=== PATIENT | female | born 1960 | race Caucasian/White ===

== ENCOUNTER 2016-04-13 13:00 | Emergency (ER) | payer MEDICARE, MEDICAID ==
--- NOTE | 2016-04-13 13:21 | ER Document Report ---
ED Medical Screen (RME) - General Stated Complaint: ABDOMINAL PAIN Notes: Diarrhea due to potential dental infection. I greeted and performed a rapid initial assessment of this patient. Comprehensive ED assessment and evaluation of the patient, analysis of test results and completion of the medical decision making process will be conducted by additional ED providers. Physical Exam - Vital signs Vitals: Temp Pulse Resp BP Pulse Ox 97.8 F 77 19 111/72 96 04/13/16 13:17 04/13/16 13:17 04/13/16 13:17 04/13/16 13:17 04/13/16 13:17 Course - Vital Signs Vital signs: Temp Pulse Resp BP Pulse Ox 97.8 F 77 19 111/72 96 04/13/16 13:17 04/13/16 13:17 04/13/16 13:17 04/13/16 13:17 04/13/16 13:17
[2016-04-13 15:28] LABS: ABSOLUTE BASOPHILS # (AUTO) 0.1 10^3/uL (0.0-0.2); ABSOLUTE EOSINOPHILS # (AUTO) 0.1 10^3/uL (0.0-0.6); ABSOLUTE LYMPHOCYTES (AUTO) 2.3 10^3/uL (0.5-4.7); ABSOLUTE MONOCYTES (AUTO) 0.7 10^3/uL (0.1-1.4); ABSOLUTE NEUT (AUTO) 5.9 10^3/uL (1.7-8.2); BASOPHILS % (AUTO) 0.6 % (0-2); EOSINOPHILS % (AUTO) 1.3 % (0-6); HEMATOCRIT 43.6 % (36.0-47.0); HEMOGLOBIN 14.9 g/dL (12.0-15.5); HGB HCT DIFFERENCE 1.1; LYMPHOCYTES % (AUTO) 25.5 % (13-45); MEAN CORPUSCULAR HEMOGLOBIN 30.7 pg (27.0-33.4); MEAN CORPUSCULAR HGB CONC 34.1 g/dL (32.0-36.0); MEAN CORPUSCULAR VOLUME 90 fl (80-97); MONOCYTES % (AUTO) 7.5 % (3-13); RED BLOOD COUNT 4.85 10^6/uL (3.72-5.28); RED CELL DISTRIBUTION WIDTH 12.9 % (11.5-14.0); SEGMENTED NEUTROPHILS % (AUTO) 65.1 % (42-78); WHITE BLOOD COUNT 9.1 10^3/uL (4.0-10.5)
[2016-04-13 15:34] LABS: APPEARANCE,URINE CLEAR; BILIRUBIN,URINE NEGATIVE (NEGATIVE); GLUCOSE, URINE NEGATIVE (NEGATIVE); KETONES,URINE NEGATIVE (NEGATIVE); LEUKOCYTE ESTERASE,URINE NEGATIVE (NEGATIVE); NITRITE,URINE NEGATIVE (NEGATIVE); PROTEIN,URINE NEGATIVE (NEGATIVE); URINE SPECIFIC GRAVITY 1.004; UROBILINOGEN,URINE NEGATIVE mg/dL (<2.0)
[2016-04-13 15:46] LABS: ALANINE AMINOTRANSFERASE 27 U/L (9-52); ALBUMIN 4.8 g/dL (3.5-5.0); ALKALINE PHOSPHATASE 65 U/L (38-126); ANION GAP 12 (5-19); ASPARTATE AMINO TRANSFERASE 20 U/L (14-36); BILIRUBIN,TOTAL 0.6 mg/dL (0.2-1.3); BLOOD UREA NITROGEN 9 mg/dL (7-20); CALCIUM 10.2 mg/dL (8.4-10.2); CARBON DIOXIDE 32 mmol/L (22-30); CHLORIDE 101 mmol/L (98-107); CREATININE RESULT 0.65 mg/dL (0.52-1.25); GLUCOSE 83 mg/dL (75-110); LIPASE 124.1 U/L (23-300); POTASSIUM 3.7 mmol/L (3.6-5.0); SODIUM 144.5 mmol/L (137-145); TOTAL PROTEIN 7.6 g/dL (6.3-8.2)
--- NOTE | 2016-04-13 19:16 | ER Document Report ---
ED GI/ - General Chief Complaint: Abdominal Pain Stated Complaint: ABDOMINAL PAIN Notes: Patient is here to be evaluated for abdominal pains that she says have been going on for about 3 or more weeks. She says that she's actually been sick since she started having some dental surgery in December, this past fall. She had a couple of these procedures and she attributes her abdominal problems to those procedures and the medications that she was given during those procedures. She was treated with antibiotics as well as tapered steroids. She is currently complaining of abdominal pain for the past 3 weeks, located primarily in the center of the abdomen. Her last course of antibiotics was around . Patient does not have any vomiting or diarrhea, but is nauseated. She points to the center of her abdomen is where her pain is located. She says that she's had a significant weight loss. Saw a primary care physician who provided her with Gaviscon, probiotic, and Bentyl, but only at 10 mg 3 times a day. She says she just got these medications and doesn't know if they're going to help. TRAVEL OUTSIDE OF THE [place] IN LAST 30 DAYS: No - Related Data Allergies/Adverse Reactions: No Known Allergies Allergy (Unverified 04/13/16 13:23) Past Medical History - Social History Smoking Status: Current Every Day Smoker Chew tobacco use (# tins/day): No Frequency of alcohol use: None Drug Abuse: None Family History: Reviewed & Not Pertinent Patient has suicidal ideation: No Patient has homicidal ideation: No - Past Medical History Cardiac Medical History: Denies: Hx Coronary Artery Disease Pulmonary Medical History: Reports: Hx COPD Review of Systems - Review of Systems Notes: REVIEW OF SYSTEMS: CONSTITUTIONAL : Denies fever. EENT: Denies eye, ear, nose or mouth or throat pain or other symptoms. CARDIOVASCULAR: Denies chest pain. RESPIRATORY: Denies cough, chest congestion, or shortness of breath. GASTROINTESTINAL: See history of present illness. GENITOURINARY: Denies difficulty or painful urinating, urinary frequency, blood in urine. MUSCULOSKELETAL: Denies back or neck pain. Denies joint pain or swelling. SKIN: Denies rash or skin lesions. NEUROLOGICAL: Denies LOC or altered mental status. Denies headache. Denies sensory loss or motor deficits. ALL OTHER SYSTEMS REVIEWED AND NEGATIVE. Physical Exam - Vital signs Vitals: Temp Pulse Resp BP Pulse Ox 97.8 F 77 19 111/72 96 04/13/16 13:17 04/13/16 13:17 04/13/16 13:17 04/13/16 13:17 04/13/16 13:17 Interpretation: Normal - Notes Notes: PHYSICAL EXAMINATION: GENERAL: Well-appearing, in no acute distress. Appears to be someone who has smoked excessively for her entire life. Looks much older than her chronologic age. HEAD: Atraumatic, normocephalic. NECK: Normal range of motion, supple. LUNGS: Breath sounds clear and equal bilaterally. HEART: Regular rate and rhythm without murmurs. ABDOMEN: Soft, tender throughout, but no guarding or rebound present. No masses present. No bruits heard. BACK: No tenderness throughout entire back. EXTREMITIES: Normal range of motion without pain. NEUROLOGICAL: Normal speech, normal gait. Normal sensory, motor, and reflex exams. Awake, alert, and oriented x3. Cranial nerves normal. PSYCH: Normal mood, normal affect. SKIN: Warm, dry, no rashes. Course - Re-evaluation Re-evalutation: 04/13/16 21:27 Patient advised that she can continue to take the Gaviscon and probiotic as well as the Bentyl, although she should increase the dose of it to a maximum per day of 40 mg 4 times a day. I am giving her a prescription for some Ativan to take as well. - Vital Signs Vital signs: Temp Pulse Resp BP Pulse Ox 98.6 F 73 16 125/73 98 04/13/16 19:25 04/13/16 19:25 04/13/16 19:25 04/13/16 19:25 04/13/16 19:25 - Laboratory Result Diagrams: 04/13/16 15:00 04/13/16 15:00 Laboratory results interpreted by me: 04/13/16 15:00 Carbon Dioxide 32 H - Diagnostic Test Radiology reviewed: Image reviewed, Reports reviewed - Patient's chest x-ray shows COPD. CT scan of the abdomen and pelvis with oral and IV contrast was negative. Discharge - Discharge Clinical Impression: Anxiety Abdominal pain Qualifiers: Abdominal location: periumbilical Qualified Code(s): R10.33 - Periumbilical pain COPD (chronic obstructive pulmonary disease) Qualifiers: COPD type: unspecified COPD Qualified Code(s): J44.9 - Chronic obstructive pulmonary disease, unspecified Condition: Stable Disposition: HOME, SELF-CARE Additional Instructions: ABDOMINAL PAIN: There are many causes of abdominal pain. Pain can mean a serious problem requiring surgery (such as appendicitis). It can also be an innocent problem that goes away on its own (such as a viral infection). Often, time must pass to determine the cause of pain. The physician does not feel that hospitalization is necessary, at present. Things may change within the next 24 hours. Call the doctor or come back for re- examination if any problems occur, such as: (1) Pain that becomes more severe, steady, or becomes concentrated in one specific area. Also, pain that is more severe with movement or coughing. (2) Vomiting that persists or becomes more frequent. (3) Blood in the vomitus, urine, or bowel movements. Blood in the stool may have a tarry or black appearance. (4) Shaking chills or fever greater than 100 degrees F. (5) The abdomen becomes more distended or swollen. (6) Bowel movements cease. (7) Failure to improve as expected. NORMAL EXAM AND WORKUP: At this time, your examination and workup show no significant abnormality. No significant abnormal physical findings are noted. All laboratory, EKG, and imaging (x-ray, CT scans, ultrasound) studies that were ordered show no significant abnormality. Although your examination and all studies that were ordered showed no significant abnormal finding, there are no examinations and no studies that are 100% accurate. There is always the possibility that some abnormality could exist and not be detected with physical examination or within the limits and capabilities of laboratory and other studies. You should return or follow up as you were instructed on your visit today for further evaluation if your symptoms do not resolve. Anxiety The physician feels that some of your health problems are being caused by anxiety. Anxiety affects your health in many ways. Anxiety alone can cause palpitations, sweats, chest pains, abdominal pains, shortness of breath, and headaches. It contributes to ulcer disease, high blood pressure, irritable bowel syndrome, and has been shown to cause flare-ups of many other diseases. Anxiety is not a simple disorder to treat. If the anxiety is due to recent life stresses, you may simply need time to "work through" the changes. If the anxiety is due to an underlying unhappiness with yourself or due to psychiatric disturbance, professional help will be needed. Your physician can refer you for further help if needed. Anti-anxiety medication is occasionally given if the stress is acute or if you are having trouble sleeping. Chronic or frequent use of these medications is not a good idea because the body becomes reliant on it, preventing you from dealing with life's normal stresses. Benzodiazepines You have been given a benzodiazepine medication. Examples of this type of medicine include Valium, Xanax, Librium, Ativan, and Halcion. Benzodiazepines have many uses. Medications of this type are used for insomnia, anxiety, muscle spasms, seizures, and drug and alcohol withdrawal. You may become very drowsy when you first take the medication. You should not drive or operate machinery while under its effects. Do not combine the medication with alcohol, or with any other medication without talking to your doctor. Do not take if without specific instruction from your peeled potato inspector. Some benzodiazepines may have harmful interactions with oral antifungal medicines such as ketoconazole, itraconazole, and nefazodone. If you are taking an antifungal medicine, discuss this with your doctor before taking benzodiazepines. FOLLOW-UP CARE: If you have been referred to a physician for follow-up care, call the physician s office for an appointment as you were instructed or within the next two days. If you experience worsening or a significant change in your symptoms, notify the physician immediately or return to the Emergency Department at any time for re-evaluation. Chronic Obstructive Lung Disease You have chronic obstructive lung disease (COPD). The symptoms come from emphysema (damage to small airways, with trapping of air in large sacks in the lung) and chronic bronchitis (repeated infection and damage to larger airways). The cause is almost always cigarette smoking, although dust exposure, asthma, and infections contribute. You should avoid fumes, dust, and smoke (especially tobacco smoke). Your condition will flare from time to time. There is no cure, but the symptoms can be treated. Bronchodilators (asthma medicine) are often helpful. Antibiotics help when infection is present. When shortness of breath is severe, we may prescribe cortisone medication. If medicine doesn't help enough, we can arrange for you to have an oxygen tank at home. Notify your doctor at once if sputum becomes thick, foul, or bloody, if you develop a fever or chest pain, or if your shortness of breath worsens. You have severe COPD. You have destroyed a significant percentage of your lung tissue from smoking over the years. It is imperative that you stop smoking! Prescriptions: Lorazepam [Ativan 1 mg Tablet] 1 mg PO Q4HP PRN #30 tab PRN Reason: Forms: Smoking Cessation Education Referrals: YONATAN WOLFF, JUSTIN-C [Primary Care Provider] - Follow up as needed
[2016-04-13 19:30] VITALS: BP 125/73
== END 2016-04-13 19:30 | disposition home or self-care (01) ==
LOC: ER 13:00
DX: J44.9 Chronic obstructive pulmonary disease, unspecified (principal); R10.33 Periumbilical pain; R11.0 Nausea; F17.200 Nicotine dependence, unspecified, uncomplicated
CPT/HCPCS: 36415; 71020; 74177; 80053; 81001; 83690; 85025; 99284

== ENCOUNTER → 2018-06-04 | Outpatient (CLI) | payer MEDICARE, MEDICAID ==
--- NOTE | 2018-06-04 08:32 | RADIOLOGY REPORT (SQ) ---
EXAM DESCRIPTION: CT ABD/PELVIS WITH IV ONLY COMPLETED DATE/TIME: 06/04/2018 8:25 am REASON FOR STUDY: PELVIC PAIN, BLOATING R10.2 PELVIC AND PERINEAL PAIN COMPARISON: 04/13/2016 TECHNIQUE: CT scan of the abdomen and pelvis performed using helical scanning technique with dynamic intravenous contrast injection. No oral contrast. Images reviewed with lung, soft tissue, and bone windows. Reconstructed coronal and sagittal MPR images reviewed. Delayed images for evaluation of the urinary system also acquired. All images stored on PACS. All CT scanners at this facility use dose modulation, iterative reconstruction, and/or weight based d osing when appropriate to reduce radiation dose to as low as reasonably achievable (ALARA). [facility]: Dose Right [facility]: CareDose [facility]: Dose Right [facility]: Teradose 4D [facility]: [employer] CONTRAST TYPE AND DOSE: contrast/concentration: Isovue 350.00 mg/ml; Total Contrast Delivered: 51.0 ml; Total Saline Delivered: 65.0 ml RENAL FUNCTION: Creatinine 0.7 RADIATION DOSE: CT Rad equipment meets quality standard of care and radiation dose reduction techniq ues were employed. CTDIvol: 2.0 - 2.8 mGy. DLP: 223 mGy-cm.. LIMITATIONS: None. FINDINGS: LOWER CHEST: No significant findings. No nodules or infiltrates. LIVER: Normal size. No masses. No dilated ducts. SPLEEN: Normal size. No focal lesions. PANCREAS: No masses. No significant calcifications. No adjacent inflammation or peripancreatic fluid collections. Pancreatic duct not dilated. GALLBLADDER: No identified stones by CT criteria. No inflammatory changes to suggest cholecystitis. ADRENAL GLANDS: No significant masses or asymmetry. RIGHT KIDNEY AND URETER: No solid masses. No significant calcifications. No hydronephrosis or hyd roureter. LEFT KIDNEY AND URETER: No solid masses. No significant calcifications. No hydronephrosis or hydr oureter. AORTA AND VESSELS: No aneurysm. No dissection. Renal arteries, SMA, celiac without stenosis. RETROPERITONEUM: No retroperitoneal adenopathy, hemorrhage or masses. BOWEL AND PERITONEAL CAVITY: No masses or inflammatory changes. No free fluid or peritoneal masses. APPENDIX: Not visualized. PELVIS: No mass. No free fluid. Normal bladder. ABDOMINAL WALL: No masses. No hernias. BONES: No significant or acute findings. OTHER: No other significant finding. IMPRESSION: NO SIGNIFICANT OR ACUTE FINDING IN THE ABDOMEN OR PELVIS ON CT SCAN WITH IV CONTRAST. TECHNICAL DOCUMENTATION: JOB ID: [id number] Quality ID # [id number]: Final reports with documentation of one or more dose reduction techniques (e.g., Au tomated exposure control, adjustment of the mA and/or kV according to patient size, use of iterative reconstruction technique) 2010 [employer]- All Rights Reserved Reading location - IP/workstation name: [email or web address]
== END ==
LOC: RAD 07:50
PROVIDERS: ATTEND Specialist
DX: R10.2 Pelvic and perineal pain (principal)
CPT/HCPCS: 74177; 82565

== ENCOUNTER 2018-06-18 06:09 | Day surgery (SDC) | payer MEDICARE, MEDICAID ==
[2018-06-16 13:05] LABS: HEMATOCRIT 45.3 % (36.0-47.0); HEMOGLOBIN 15.9 g/dL (12.0-15.5); MEAN CORPUSCULAR HEMOGLOBIN 31.1 pg (27.0-33.4); MEAN CORPUSCULAR VOLUME 89 fl (80-97); PLATELET COUNT 186 10^3/uL (150-450); RED CELL DISTRIBUTION WIDTH 12.9 % (11.5-14.0); WHITE BLOOD COUNT 8.2 10^3/uL (4.0-10.5)
[2018-06-16 13:09] LABS: APPEARANCE,URINE SLIGHTLY-CLOUDY; BILIRUBIN,URINE NEGATIVE (NEGATIVE); COLOR,URINE YELLOW; GLUCOSE, URINE NEGATIVE (NEGATIVE); KETONES,URINE NEGATIVE (NEGATIVE); LEUKOCYTE ESTERASE,URINE NEGATIVE (NEGATIVE); NITRITE,URINE NEGATIVE (NEGATIVE); PROTEIN,URINE NEGATIVE (NEGATIVE); URINE SPECIFIC GRAVITY 1.008; UROBILINOGEN,URINE NEGATIVE mg/dL (<2.0)
[2018-06-16 13:45] LABS: ANION GAP 9 (5-19); BLOOD UREA NITROGEN 16 mg/dL (7-20); CALCIUM 10.7 mg/dL (8.4-10.2); CARBON DIOXIDE 28 mmol/L (22-30); CHLORIDE 102 mmol/L (98-107); GLUCOSE 96 mg/dL (75-110); SODIUM 139.3 mmol/L (137-145)
--- NOTE | 2018-06-16 13:59 | RADIOLOGY REPORT (SQ) ---
EXAM DESCRIPTION: CHEST PA/LATERAL COMPLETED DATE/TIME: 06/16/2018 12:05 pm REASON FOR STUDY: PRE-OP COMPARISON: 04/13/2016 EXAM PARAMETERS: NUMBER OF VIEWS: two views TECHNIQUE: Digital Frontal and Lateral radiographic views of the chest acquired. RADIATION DOSE: NA LIMITATIONS: Rotation on the lateral projection. FINDINGS: LUNGS AND PLEURA: No opacities, masses or pneumothorax. No pleural effusion. Mild hyperin flation. MEDIASTINUM AND HILAR STRUCTURES: No masses or contour abnormalities. HEART AND VASCULAR STRUCTURES: Heart normal size. No evidence for failure. BONES: No acute findings. HARDWARE: None in the chest. OTHER: No other significant finding. IMPRESSION: No evidence of acute cardiopulmonary process. TECHNICAL DOCUMENTATION: JOB ID: [id number] [employer]- All Rights Reserved Reading location - IP/workstation name: [email or web address]
--- NOTE | 2018-06-16 18:43 | EKG REPORT ---
SEVERITY:- NORMAL ECG - SINUS RHYTHM : Confirmed by: Jann Pena MD 16-Jun-2018 18:43:00
[~2018-06-18 06:09] MED LIST: CEFAZOLIN 1 GM/D5W RTU 1 GM/50 ML RTUPB IV PRN; LACTATED RINGERS 1000 ML IV PRN; LIDOCAINE 0.5% INJ-PF (5 MG/ML) 50 ML SDV SUBCUT PRN
[2018-06-18] MEDS ORDERED: ALBUTEROL SULFATE 0.083% NEB 2.5 MG/3 ML AMPUL NEB ONE (06:45)
[2018-06-18] MEDS ORDERED: CEFAZOLIN 1 GM/D5W RTU 1 GM/50 ML RTUPB IV ONE (06:54)
[2018-06-18] MEDS ORDERED: MIDAZOLAM 2 MG/2 ML INJ ONE (07:02)
[2018-06-18] MEDS ORDERED: FENTANYL CITRATE INJ/PF 100 MCG/2 ML AMPUL ONE (07:02)
[2018-06-18] MEDS ORDERED: ONDANSETRON HCL INJ/PF 4 MG/2 ML SDV ONE (07:02)
[2018-06-18] MEDS ORDERED: PROPOFOL INJ 200 MG/20 ML VIAL IV ONE (07:03)
[2018-06-18] MEDS ORDERED: METOCLOPRAMIDE HCL INJ/PF 10 MG/2 ML SDV ONE (07:24)
[2018-06-18] MEDS ORDERED: FAMOTIDINE INJ/PF 20 MG/2 ML SDV IV ONE (07:25)
[2018-06-18] MEDS ORDERED: CITRIC ACID/SODIUM CITRATE ORAL SOLN 15 ML UDCUP ONE (07:25)
[2018-06-18] MEDS ORDERED: MEPERIDINE HCL/PF INJ 25 MG/1 ML DISP.SYRIN IV PRN (07:40)
[2018-06-18] MEDS ORDERED: PROMETHAZINE HCL INJ 25 MG/1 ML VIAL IV PRN (07:40)
[2018-06-18] MEDS ORDERED: DIPHENHYDRAMINE HCL 50 MG/ML VIAL IV PRN (07:40)
[2018-06-18] MEDS ORDERED: FENTANYL CITRATE INJ/PF 100 MCG/2 ML AMPUL IV PRN ×3 (07:40)
[2018-06-18] MEDS ORDERED: LIDOCAINE 1% INJ-PF (10 MG/ML) 30 ML SDV ONE (08:05)
[2018-06-18] MEDS ORDERED: ACETAMINOPHEN 1,000 MG/100 ML RTUPB IV ONE (08:39)
[2018-06-18] MEDS ORDERED: KETOROLAC TROMETHAMINE 60 MG/2 ML SDV ONE (08:39)
--- NOTE | 2018-06-18 09:19 | OPERATIVE REPORT E ---
Operative Report NAME: AMY GURROLA : 1960 AGE: 58Y DATE OF SURGERY: 06/18/2018 ROOM: PREOPERATIVE DIAGNOSIS: Chronic pelvic pain, question endometrial lesion. Outpatient Pap biopsies have been nondefinitive. The patient has been evaluated for cramping, abdominal pain without bleeding. She had a vaginal ultrasound that demonstrated question of a [address] scan demonstrated ill-defined isthmic lesion in the cervical area. The patient describes cramping and abdominal distention. The CT scan was noncontributory in that matter. She was brought in for hysteroscopy, more complete curettage, possible Myosure for polypectomy. The usual risks of bleeding, infection, anesthesia, and damage to organs and tissues have been discussed and the patient understood. PROCEDURE: Hysteroscopy D and C. SURGEON: BHUPINDER WOODARD M.D. ESTIMATED BLOOD LOSS: Less than 5 mL. FINDINGS: An endometrial cavity. Right tubal ostia was identified. Left tubal ostia was not noted. There appeared to be more of a unilateral uterus. Atrophic endometrial cavity was encountered. No endometrial polyp was appreciated. Curettage of the endometrium as well as endocervical areas were noted. Endocervical area specifically showed no lesions in the canal and a normal-appearing atrophic cervix was appreciated. EUA demonstrated no pelvic masses appreciated. Rectal exam demonstrated a normal rectal exam and no masses. DESCRIPTION OF PROCEDURE: The patient was taken to the operating room and placed in the modified lithotomy position. After adequate anesthesia ascertained, prepped and draped in the usual manner for a hysteroscopy. Bladder was left undrained. After good anesthesia was ascertained, surgical timeout was performed, cervix dilated to admit an operative hysteroscope. The above noted findings were appreciated. Endometrial biopsies ensued. Instruments were removed and the patient awakened and taken to recovery room in stable condition. DICTATING PHYSICIAN: BHUPINDER WOODARD M.D. [id number] PHY#: [id number] ID: [id number] JOB#: [id number] ACCT: [id number] cc:BHUPINDER WOODARD M.D. >
[2018-06-18] MEDS ORDERED: OXYCODONE-ACETAMINOPHEN 5-325 MG TABLET PO PRN (09:30)
[2018-06-18] MEDS ORDERED: MORPHINE INJ 4 MG DOSE (EDIT ROUTE) INJ PRN (09:30)
[2018-06-18] MEDS ORDERED: PROMETHAZINE HCL INJ 25 MG/1 ML VIAL IM PRN (09:30)
[2018-06-18] MEDS ORDERED: IBUPROFEN 800 MG TABLET ONE (10:04)
[2018-06-18 11:12] VITALS: BP 121/62
[2018-06-18] MEDS ORDERED: IBUPROFEN 800 MG TABLET PO SCH (14:00)
[2018-06-18] MEDS ORDERED: SUCCINYLCHOLINE CHLORIDE INJ 200 MG/10 ML VIAL ONE (21:16)
== END 2018-06-18 11:00 | disposition home or self-care (01) ==
LOC: OROUT 06:09
PROVIDERS: ATTEND Specialist
DX: G89.29 Other chronic pain (principal); R10.2 Pelvic and perineal pain; F17.210 Nicotine dependence, cigarettes, uncomplicated; D66 Hereditary factor VIII deficiency
CPT/HCPCS: 58558; 93005; 86900; 86901; 36415; 86850; 85027; 80048; 81001; 88305 ×2; 71046; 93010; J2250; J0690; A9270 ×2; J1885; J3010; J3490 ×2; J2765; J0330; J2405; J2704; S0028; J0131; 952

== ENCOUNTER 2019-01-10 09:15 | Emergency (ER) | payer MEDICARE, MEDICAID ==
--- NOTE | 2019-01-10 12:46 | RADIOLOGY REPORT (SQ) ---
EXAM DESCRIPTION: CHEST 2 VIEWS COMPLETED DATE/TIME: 01/10/2019 12:32 pm REASON FOR STUDY: COPD, altered mental status COMPARISON: PA and lateral views of the chest from 06/16/2018. EXAM PARAMETERS: NUMBER OF VIEWS: two views TECHNIQUE: Digital Frontal and Lateral radiographic views of the chest acquired. RADIATION DOSE: NA LIMITATIONS: none FINDINGS: LUNGS AND PLEURA: No consolidation, pleural effusion or pneumothorax. MEDIASTINUM AND HILAR STRUCTURES: No mediastinal or hilar contour abnormality. HEART AND VASCULAR STRUCTURES: The cardiac silhouette and pulmonary vasculature are within normal james its. BONES: No acute findings. HARDWARE: None. OTHER: No other finding. IMPRESSION: No acute cardiopulmonary process. TECHNICAL DOCUMENTATION: JOB ID: [id number] [employer]- All Rights Reserved Reading location - IP/workstation name: [email or web address]
--- NOTE | 2019-01-10 12:49 | RADIOLOGY REPORT (SQ) ---
EXAM DESCRIPTION: CT HEAD WITHOUT COMPLETED DATE/TIME: 01/10/2019 12:29 pm REASON FOR STUDY: Shaking, confusion COMPARISON: None. TECHNIQUE: Axial images acquired through the brain without intravenous contrast. Images reviewed wi th bone, brain and subdural windows. Additional sagittal and coronal reconstructions were generated. Images stored on PACS. All CT scanners at this facility use dose modulation, iterative reconstruction, and/or weight based d osing when appropriate to reduce radiation dose to as low as reasonably achievable (ALARA). [facility]: Dose Right [facility]: CareDose [facility]: Dose Right [facility]: Teradose 4D [facility]: [employer] LIMITATIONS: None. FINDINGS: There is no acute intracranial hemorrhage, vascular territorial infarct, extra-axial fluid collection, mass effect, or midline shift. There is no effacement of the cerebral sulci or basal omer barachnoid cisterns. The rodrigues-white matter differentiation is preserved. The caliber of the ventric les is concordant with the degree of sulcation. The orbits and globes are intact. The paranasal sinuses and the mastoid air cells are clear. There is no fracture of the calvarium. IMPRESSION: No acute intracranial abnormality. EVIDENCE OF ACUTE STROKE: NO. COMMENT: Quality ID # [id number]: Final reports with documentation of one or more dose reduction techniques (e.g., Automated exposure control, adjustment of the mA and/or kV according to patient size, use of iterative reconstruction technique) TECHNICAL DOCUMENTATION: JOB ID: [id number] [employer]- All Rights Reserved Reading location - IP/workstation name: [email or web address]
[2019-01-10 13:16] LABS: ABSOLUTE LYMPHOCYTES (AUTO) 1.4 10^3/uL (0.5-4.7); ABSOLUTE MONOCYTES (AUTO) 0.4 10^3/uL (0.1-1.4); ABSOLUTE NEUT (AUTO) 5.1 10^3/uL (1.7-8.2); BASOPHILS % (AUTO) 0.6 % (0-2); EOSINOPHILS % (AUTO) 0.5 % (0-6); HEMATOCRIT 45.2 % (36.0-47.0); HEMOGLOBIN 15.3 g/dL (12.0-15.5); LYMPHOCYTES % (AUTO) 19.7 % (13-45); MEAN CORPUSCULAR HEMOGLOBIN 30.5 pg (27.0-33.4); MEAN CORPUSCULAR HGB CONC 33.8 g/dL (32.0-36.0); MEAN CORPUSCULAR VOLUME 90 fl (80-97); MONOCYTES % (AUTO) 6.1 % (3-13); PLATELET COUNT 177 10^3/uL (150-450); RED BLOOD COUNT 5.01 10^6/uL (3.72-5.28); RED CELL DISTRIBUTION WIDTH 12.9 % (11.5-14.0); SEGMENTED NEUTROPHILS % (AUTO) 73.1 % (42-78); TOTAL CELLS COUNTED % (AUTO) 100 %; WHITE BLOOD COUNT 6.9 10^3/uL (4.0-10.5)
[2019-01-10 13:43] LABS: ALBUMIN 4.5 g/dL (3.5-5.0); ALKALINE PHOSPHATASE 56 U/L (38-126); ANION GAP 8 (5-19); ASPARTATE AMINO TRANSFERASE 27 U/L (14-36); BILIRUBIN,DIRECT 0.1 mg/dL (0.0-0.4); BILIRUBIN,TOTAL 0.6 mg/dL (0.2-1.3); BLOOD UREA NITROGEN 16 mg/dL (7-20); CALCIUM 10.3 mg/dL (8.4-10.2); CARBON DIOXIDE 29 mmol/L (22-30); CHLORIDE 103 mmol/L (98-107); GLUCOSE 89 mg/dL (75-110); POTASSIUM 3.6 mmol/L (3.6-5.0); TOTAL PROTEIN 7.3 g/dL (6.3-8.2)
[2019-01-10 14:43] LABS: FREE T4 (FREE THYROXINE) 1.07 ng/dL (0.78-2.19); THYROID STIMULATING HORMONE 1.27 uIU/mL (0.47-4.68)
[2019-01-10 15:12] LABS: AMORPHOUS SEDIMENT,URINE TRACE /HPF; APPEARANCE,URINE CLOUDY; BILIRUBIN,URINE NEGATIVE (NEGATIVE); GLUCOSE, URINE NEGATIVE (NEGATIVE); KETONES,URINE 20 mg/dL (NEGATIVE); LEUKOCYTE ESTERASE,URINE TRACE (NEGATIVE); NITRITE,URINE NEGATIVE (NEGATIVE); PROTEIN,URINE NEGATIVE (NEGATIVE); URINE SPECIFIC GRAVITY 1.013; UROBILINOGEN,URINE NEGATIVE mg/dL (<2.0)
[2019-01-10 15:14] LABS: COLOR,URINE DARK YELLOW
--- NOTE | 2019-01-10 15:41 | ER Document Report ---
ED General - General Chief Complaint: Medical Clearance Stated Complaint: TOXICITY Time Seen by Provider: 01/10/19 11:43 Primary Care Provider: SHANA GARCIA PA-C [Primary Care Provider] - Follow up as needed Notes: Patient is here with her family who are concerned that she may be having side effects from previously ingested medications, several weeks ago. Patient says that she is having episodes of shaking and at times, confused and disoriented. These episodes have been going on for 2 to 3 months, and then she had an appointment with her GI doctor who did a lower endoscopy several months ago and told her she had irritable bowel syndrome. She was put on Elavil and began having the symptoms described, shaking, confusion, etc. so she stopped taking that medication about 3 weeks ago. She saw her primary care doctor this past Thursday who changed her to Lexapro which she took for 3 days and stopped jeff ing it because it was causing her to have panic attacks. Patient currently takes Xanax, supposedly at nighttime, to help with her panic attacks. She has been taking them during the day as well. Patient is here with her daughter who is a pharmacy salesperson who has concerns about toxic side effects of this patient's medications that she is been prescribed. She additionally reports that her family has a high acid content in their saliva which caused damage to the teeth and to work done on her teeth. TRAVEL OUTSIDE OF THE [place] IN LAST 30 DAYS: No - Related Data Allergies/Adverse Reactions: OPIOIDS Adverse Reaction (Intermediate, Uncoded 06/18/18 07:00) VOMITING Past Medical History - Social History Smoking Status: Current Every Day Smoker - 1/2 pack/day Family History: Reviewed & Not Pertinent Patient has suicidal ideation: No Patient has homicidal ideation: No Pulmonary Medical History: Reports: Hx COPD Neurological Medical History: Reports: Hx Seizures - LAST ONE 10YRS AGO Musculoskeletal Medical History: Denies Hx Arthritis - Immunizations Hx Diphtheria, Pertussis, Tetanus Vaccination: Yes Review of Systems - Review of Systems Notes: REVIEW OF SYSTEMS: CONSTITUTIONAL : Denies fever. EENT: Denies eye, ear, nose or mouth or throat pain or other symptoms. CARDIOVASCULAR: Denies chest pain. RESPIRATORY: Denies cough, chest congestion, or shortness of breath. Has been told that she has some COPD. GASTROINTESTINAL: Denies abdominal pain or nausea, vomiting, or diarrhea. Has been told that she has IBS. GENITOURINARY: Denies difficulty or painful urinating, urinary frequency, blood in urine. MUSCULOSKELETAL: Denies back or neck pain. Denies joint pain or swelling. SKIN: Denies rash or skin lesions. NEUROLOGICAL: Denies LOC or altered mental status. Denies headache. Denies sensory loss or motor deficits. Psychiatric: See HPI. Patient admits she is been feeling under a lot of stress lately. ALL OTHER SYSTEMS REVIEWED AND NEGATIVE. Physical Exam - Vital signs Vitals: Temp Pulse Resp BP Pulse Ox 97.7 F 80 16 128/82 H 98 01/10/19 09:21 01/10/19 09:21 01/10/19 09:21 01/10/19 09:21 01/10/19 09:21 Interpretation: Normal - General General appearance: Appears well, Alert In distress: None - HEENT Head: Normocephalic Eyes: Normal Extraocular movements intact: Yes Pupils: PERRL - Respiratory Respiratory status: No respiratory distress Breath sounds: Normal. No: Rales, Wheezing Chest palpation: Normal - Cardiovascular Rhythm: Regular Heart sounds: Normal auscultation Normal capillary refill: Yes - Abdominal Bowel sounds: Normal Tenderness: Nontender - Extremities General upper extremity: Normal inspection, Nontender General lower extremity: Normal inspection, Nontender - Neurological Neuro grossly intact: Yes Cognition: Normal Orientation: AAOx4 Mary Coma Scale Verbal: Oriented Speech: Normal - Psychological Associated symptoms: Anxious, Depressed - in my opinion. No: Confused, Paranoid - Skin Skin Temperature: Warm Skin Color: Normal Skin irregularity: negative: Rash Irregularity with: negative: Swelling, Tenderness Course - Re-evaluation Re-evalutation: 01/10/19 19:07 Patient's entire work-up is almost completely normal. Went over everything with her and her family. Advised her to follow-up with her primary care provider to provide her with medications for treating likely anxiety. - Vital Signs Vital signs: Temp Pulse Resp BP Pulse Ox 97.7 F 80 15 130/74 H 97 01/10/19 09:21 01/10/19 09:21 01/10/19 15:01 01/10/19 15:00 01/10/19 15:01 - Laboratory Result Diagrams: 01/10/19 12:55 01/10/19 12:55 Laboratory results interpreted by me: 01/10/19 01/10/19 12:55 14:27 Calcium 10.3 H Urine Ketones 20 H Ur Leukocyte Esterase TRACE H - Diagnostic Test Radiology reviewed: Image reviewed, Reports reviewed - CT scan of the brain was normal. Radiology results interpreted by me: 01/10/19 19:11 Chest x-ray is normal. - EKG Interpretation by Me EKG shows normal: Sinus rhythm Rate: Normal Rhythm: NSR Additional EKG results interpreted by me: 01/10/19 19:12 Patient has no elevation of any of the ST segments. There are no nonspecific changes either. Very normal EKG. Discharge - Discharge Clinical Impression: COPD (chronic obstructive pulmonary disease), Anxiety Condition: Stable Disposition: HOME, SELF-CARE Additional Instructions: Anxiety The physician feels that some of your health problems are being caused by anxiety. Anxiety affects your health in many ways. Anxiety alone can cause palpitations, sweats, chest pains, abdominal pains, shortness of breath, and he adaches. It contributes to ulcer disease, high blood pressure, irritable bowel syndrome, and has been shown to cause flare-ups of many other diseases. Anxiety is not a simple disorder to treat. If the anxiety is due to recent life stresses, you may simply need time to "work through" the changes. If the anxiety is due to an underlying unhappiness with yourself or due to psychiatric disturbance, professional help will be needed. Your physician can refer you for further help if needed. Anti-anxiety medication is occasionally given if the stress is acute or if you are having trouble sleeping. Chronic or frequent use of these medications is not a good idea because the body becomes reliant on it, preventing you from dealing with life's normal stresses. Chronic Obstructive Lung Disease You have chronic obstructive lung disease (COPD). The symptoms come from emphysema (damage to small airways, with trapping of air in large sacks in the lung) and chronic bronchitis (repeated infection and damage to larger airways). The cause is almost always cigarette smoking, although dust exposure, asthma, and infections contribute. You should avoid fumes, dust, and smoke (especially tobacco smoke). Your condition will flare from time to time. There is no cure, but the symptoms can be treated. Bronchodilators (asthma medicine) are often helpful. Antibiotics help when infection is present. When shortness of breath is severe, we may prescribe cortisone medication. If medicine doesn't help enough, we can arrange for you to have an oxygen tank at home. Notify your doctor at once if sputum becomes thick, foul, or bloody, if you develop a fever or chest pain, or if your shortness of breath worsens. Stop Smoking You should stop smoking. The tar and chemicals in cigarette smoke are harmful. Smoking has been shown to cause: Emphysema and chronic bronchitis Lung cancer Cancer of the mouth, larynx, stomach, and pancreas Heart disease and stroke Stillbirths and miscarriage Premature aging In addition, smoking increases the chances of respiratory infections and ear infections in children of smokers, and increases the risk of cancer in persons exposed to second-hand smoke. Classes are available to help you stop smoking. If you are serious about wanting to quit, we can help arrange this therapy for you, or you can contact the local lung or cancer association. Otherwise, NORMAL EXAM AND WORKUP: At this time, your examination and workup show no significant abnormality. No significant abnormal physical findings were noted. All laboratory, EKG, and imaging (x-ray, CT scans, ultrasound) studies that were ordered show no significant abnormality. Although your examination and all studies that were ordered showed no significant abnormal finding, there are no examinations and no studies that are 100% accurate. There is always the possibility that some abnormality could exist and not be detected with physical examination or within the limits and capabilities of laboratory and other studies. You should return or follow up as you were instructed on your visit today for further evaluation if your symptoms do not resolve. FOLLOW-UP CARE: If you have been referred to a physician for follow-up care, call the physici ans office for an appointment as you were instructed or within the next two days. If you experience worsening or a significant change in your symptoms, notify the physician immediately or return to the Emergency Department at any time for re-evaluation. Referrals: SHANA GARCIA PA-C [Primary Care Provider] - Follow up as needed
[2019-01-10 16:00] VITALS: BP 130/74
--- NOTE | 2019-01-10 19:43 | EKG REPORT ---
SEVERITY:- ABNORMAL ECG - SINUS RHYTHM PROBABLE LEFT VENTRICULAR HYPERTROPHY : Confirmed by: Jann Pena MD 10-Jan-2019 19:43:08
== END 2019-01-10 15:45 | disposition home or self-care (01) ==
LOC: ER 09:15
DX: F41.9 Anxiety disorder, unspecified (principal); J44.9 Chronic obstructive pulmonary disease, unspecified; R41.0 Disorientation, unspecified; F41.0 Panic disorder [episodic paroxysmal anxiety]; F17.200 Nicotine dependence, unspecified, uncomplicated
CPT/HCPCS: 36415; 70450; 71046; 80053; 81001; 84439; 84443; 85025; 93005; 93010; 99284

== ENCOUNTER 2019-05-31 10:28 | Emergency (ER) | payer MEDICARE, MEDICAID ==
--- NOTE | 2019-05-31 11:40 | ER Document Report ---
ED General <LAURA THORNTON Teagan - Last Filed: 05/31/19 17:57> - General TRAVEL OUTSIDE OF THE [place] IN LAST 30 DAYS: No <AFTAB GABRIEL - Last Filed: 05/31/19 19:38> - General Chief Complaint: Overdose Stated Complaint: POSSIBLE OVERDOSE Time Seen by Provider: 05/31/19 10:44 Primary Care Provider: SHANA GARCIA PA-C [Primary Care Provider] - Follow up as needed - HPI Notes: 59-year-old female presents emergency room via EMS for overdose of taking 11 pills of her 2 mg Xanax because she "could not take it anymore". Patient is drowsy. Denies any other self-harm, no homicidal ideations. Denies any chest pain, shortness of breath, nausea vomiting or diarrhea, patient is semi-alert and orientated to person place time and circumstance. Denies any fevers chills, abdominal pain, weakness in arms or legs. Mental health will be evaluating patient at bedside. (AFTAB GABRIEL) - Related Data Allergies/Adverse Reactions: codeine Allergy (Verified 05/31/19 11:57) OPIOIDS Adverse Reaction (Intermediate, Uncoded 05/31/19 11:57) VOMITING Past Medical History - General Information source: Patient - Social History Smoking Status: Current Every Day Smoker Family History: Reviewed & Not Pertinent Patient has suicidal ideation: Yes Patient has homicidal ideation: No - Past Medical History Cardiac Medical History: Denies: Hx Coronary Artery Disease, Hx Heart Attack, Hx Hypertension Pulmonary Medical History: Reports: Hx COPD Denies: Hx Asthma, Hx Bronchitis, Hx Pneumonia Neurological Medical History: Reports: Hx Seizures - LAST ONE 10YRS AGO. Denies: Hx Cerebrovascular Accident Renal/ Medical History: Denies: Hx Peritoneal Dialysis Musculoskeletal Medical History: Denies Hx Arthritis - Immunizations Hx Diphtheria, Pertussis, Tetanus Vaccination: Yes <AFTAB GABRIEL - Last Filed: 05/31/19 19:38> Review of Systems - Review of Systems Constitutional: No symptoms reported EENT: No symptoms reported Cardiovascular: No symptoms reported Respiratory: No symptoms reported Gastrointestinal: No symptoms reported Genitourinary: No symptoms reported Female Genitourinary: No symptoms reported Musculoskeletal: See HPI Skin: No symptoms reported Hematologic/Lymphatic: No symptoms reported Neurological/Psychological: No symptoms reported <AFTAB GABRIEL - Last Filed: 05/31/19 19:38> Physical Exam <AFTAB GABRIEL - Last Filed: 05/31/19 19:38> - Vital signs Vitals: Temp Pulse Resp BP Pulse Ox 97.8 F 65 14 99/66 L 100 05/31/19 10:30 05/31/19 10:30 05/31/19 10:30 05/31/19 10:30 05/31/19 10:30 - Notes Notes: PHYSICAL EXAMINATION: reviewed vital signs by RN GENERAL: Well-appearing, well-nourished and in no acute distress. HEAD: Atraumatic, normocephalic. EYES: Pupils equal round and reactive to light, extraocular movements intact, conjunctiva are normal. ENT: Nares patent, oropharynx clear without exudates. Moist mucous membranes. NECK: Normal range of motion, supple without lymphadenopathy LUNGS: Breath sounds clear to auscultation bilaterally and equal. No wheezes rales or rhonchi. HEART: Regular rate and rhythm without murmurs ABDOMEN: Soft, nontender, nondistended abdomen. No guarding, no rebound. No masses appreciated. Female : deferred Musculoskeletal: Normal range of motion, no pitting or edema. No cyanosis. NEUROLOGICAL: Cranial nerves grossly intact. Patient drowsy. normal speech, normal gait. Normal sensory, motor exams PSYCH: Flat affect SKIN: Warm, Dry, normal turgor, no rashes or lesions noted. (AFTAB GABRIEL) Course - Laboratory Result Diagrams: 05/31/19 12:02 05/31/19 16:30 <LAURA THORNTON - Last Filed: 05/31/19 17:57> - Laboratory Result Diagrams: 05/31/19 12:02 05/31/19 16:30 <AFTAB GABRIEL - Last Filed: 05/31/19 19:38> - Re-evaluation Re-evalutation: 05/31/19 18:44 Afebrile vital stable and in no distress. CBC negative for leukocytosis or anemia, CMP negative for hepatic or renal dysfunction, no electrolyte disturbances. Drug screen did test positive for benzodiazepines negative for the rest. Urinalysis unremarkable. Patient is IVC for suicidal ideation and is under 24-hour petition. Patient states she is never tried to overdose prior. EKG negative for STEMI. Chest x-ray unremarkable, no pneumonia. patient will be spending the night under observation on residential monitor. Patient will be moved to pod 5 for mental health further evaluation. Report will be given out to [facility] for disposition. 05/31/19 19:38 (AFTAB GABRIEL) - Vital Signs Vital signs: Temp Pulse Resp BP Pulse Ox 97.8 F 65 18 106/79 97 05/31/19 10:30 05/31/19 10:30 05/31/19 18:00 05/31/19 18:00 05/31/19 18:00 - Laboratory Laboratory results interpreted by me: 05/31/19 05/31/19 12:02 16:30 Anion Gap 3 L Creatinine 0.44 L 0.51 L Salicylates < 1.0 L < 1.0 L Acetaminophen < 10 L < 10 L Discharge <LAURA THORNTON - Last Filed: 05/31/19 17:57> <AFTAB GABRIEL - Last Filed: 05/31/19 19:38> - Discharge Clinical Impression: Suicide attempt, Intentional benzodiazepine overdose Condition: Stable Disposition: OTHER Referrals: SHANA GARCIA PA-C [Primary Care Provider] - Follow up as needed
--- NOTE | 2019-05-31 12:16 | PSYCHOLOGICAL NOTE ---
Psych Note - Psych Note Date seen by psych provider: 05/31/19 Time seen by psych provider: 10:55 Psych Note: Reason For Consult: reported intentional overdose Consent Permissions:did not provide Patient discloses she intentionally overdosed on 11 pills of her 2 mg Xanax. She states that she did it because "I could not take it anymore." [place] and now she lives in subsidized housing. 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 Patient discloses that in addition to financial stressors her watches news every day all day and could not take it. Patient reports not wanting to live. Patient is semi-alert and orientated to person, place, time and circumstance. Patient is struggling to stay awake during evaluation due to medication mood is euthymic with congruent affect. Patient presents after intentional overdose. Delusions are absent and behaviors congruent with an intact reality based presentation ie organized and linear thought process. Eye contact is poor. Conversational speech is slurred and difficult to understand at times. Intellectual abilities appear to be within the average range. Attention and concentration are poor. Insight, judgment, impulse control are poor. Impression\\plan: Patient is recommended for 24-hour petition for evaluation. Patient presented after reported intentional overdose. Patient confirms continued thoughts of wanting to harm herself. It is noted patient does have difficulty staying awake during evaluation and is slurring her words and difficult to understand at times. Evaluation is ongoing. Dr. Romero was consulted to care management of this patient; attending physicians in agreement with recommendations and disposition.
[2019-05-31 12:19] LABS: ABSOLUTE LYMPHOCYTES (AUTO) 1.8 10^3/uL (0.5-4.7); ABSOLUTE MONOCYTES (AUTO) 0.4 10^3/uL (0.1-1.4); ABSOLUTE NEUT (AUTO) 4.3 10^3/uL (1.7-8.2); BASOPHILS % (AUTO) 0.6 % (0-2); EOSINOPHILS % (AUTO) 0.6 % (0-6); HEMATOCRIT 43.7 % (36.0-47.0); HEMOGLOBIN 15.4 g/dL (12.0-15.5); LYMPHOCYTES % (AUTO) 27.3 % (13-45); MEAN CORPUSCULAR HEMOGLOBIN 31.6 pg (27.0-33.4); MEAN CORPUSCULAR HGB CONC 35.2 g/dL (32.0-36.0); MEAN CORPUSCULAR VOLUME 90 fl (80-97); PLATELET COUNT 155 10^3/uL (150-450); RED BLOOD COUNT 4.87 10^6/uL (3.72-5.28); RED CELL DISTRIBUTION WIDTH 13.1 % (11.5-14.0); SEGMENTED NEUTROPHILS % (AUTO) 65.5 % (42-78); TOTAL CELLS COUNTED % (AUTO) 100 %; WHITE BLOOD COUNT 6.5 10^3/uL (4.0-10.5)
[2019-05-31 12:36] LABS: ALKALINE PHOSPHATASE 39 U/L (38-126); ASPARTATE AMINO TRANSFERASE 30 U/L (14-36); BILIRUBIN,TOTAL 0.5 mg/dL (0.2-1.3); BLOOD UREA NITROGEN 10 mg/dL (7-20); CALCIUM 9.2 mg/dL (8.4-10.2); GLUCOSE 87 mg/dL (75-110); POTASSIUM 4.1 mmol/L (3.6-5.0); TOTAL PROTEIN 6.6 g/dL (6.3-8.2)
[2019-05-31 12:41] LABS: CARBON DIOXIDE 30 mmol/L (22-30); CHLORIDE 106 mmol/L (98-107)
[2019-05-31 12:46] LABS: ACETAMINOPHEN < 10 ug/mL (10-30); ALCOHOL < 10 mg/dL (NONE DETECTED); ANION GAP 3 (5-19); SALICYLATE < 1.0 mg/dL (2.0-20.0)
[2019-05-31 12:59] LABS: APPEARANCE,URINE CLEAR; BILIRUBIN,URINE NEGATIVE (NEGATIVE); COLOR,URINE STRAW; GLUCOSE, URINE NEGATIVE (NEGATIVE); KETONES,URINE NEGATIVE (NEGATIVE); LEUKOCYTE ESTERASE,URINE NEGATIVE (NEGATIVE); NITRITE,URINE NEGATIVE (NEGATIVE); PROTEIN,URINE NEGATIVE (NEGATIVE); URINE SPECIFIC GRAVITY 1.005; UROBILINOGEN,URINE NEGATIVE mg/dL (<2.0)
[2019-05-31 13:13] LABS: URINE AMPHETAMINES SCREEN NEGATIVE; URINE BARBITURATES SCREEN NEGATIVE; URINE COCAINE SCREEN NEGATIVE; URINE MARIJUANA (THC) SCREEN NEGATIVE; URINE METHADONE SCREEN NEGATIVE; URINE PHENCYCLIDINE SCREEN NEGATIVE
[2019-05-31 13:14] LABS: URINE BENZODIAZEPINES SCREEN UNCONFIRMED POSITIVE
--- NOTE | 2019-05-31 14:32 | EKG REPORT ---
SEVERITY:- NORMAL ECG - SINUS RHYTHM : Confirmed by: Lucrecia Mejias MD 31-May-2019 14:30:50
[2019-05-31 17:05] LABS: ANION GAP 6 (5-19); BLOOD UREA NITROGEN 12 mg/dL (7-20); CALCIUM 9.7 mg/dL (8.4-10.2); CARBON DIOXIDE 30 mmol/L (22-30); CHLORIDE 105 mmol/L (98-107); GLUCOSE 81 mg/dL (75-110); POTASSIUM 3.8 mmol/L (3.6-5.0)
[2019-05-31 17:06] LABS: ACETAMINOPHEN < 10 ug/mL (10-30); SALICYLATE < 1.0 mg/dL (2.0-20.0)
--- NOTE | 2019-05-31 19:09 | ER Document Report ---
ED General - General Chief Complaint: Overdose Stated Complaint: POSSIBLE OVERDOSE Time Seen by Provider: 05/31/19 10:44 Primary Care Provider: SHANA GARCIA PA-C [Primary Care Provider] - Follow up as needed TRAVEL OUTSIDE OF THE [place] IN LAST 30 DAYS: No - HPI Notes: Patient is a 59-year-old female who is brought in the emergency department for evaluation after an intentional overdose. Evidently the patient ingested 22 mg of Xanax this morning at 9 AM. 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 She denies any history of suicide attempt. She is never had a psychiatric hospitalization. She has continued suicidal ideation, no homicidal ideation. She denies any visual or auditory hallucination. She states to me repeatedly she would just like to see her . - Related Data Allergies/Adverse Reactions: codeine Allergy (Verified 05/31/19 11:57) OPIOIDS Adverse Reaction (Intermediate, Uncoded 05/31/19 11:57) VOMITING Past Medical History - General Information source: Patient - Social History Smoking Status: Current Every Day Smoker Family History: Reviewed & Not Pertinent Patient has suicidal ideation: Yes Patient has homicidal ideation: No - Past Medical History Cardiac Medical History: Denies: Hx Coronary Artery Disease, Hx Heart Attack, Hx Hypertension Pulmonary Medical History: Reports: Hx COPD Denies: Hx Asthma, Hx Bronchitis, Hx Pneumonia Neurological Medical History: Reports: Hx Seizures - LAST ONE 10YRS AGO. Denies: Hx Cerebrovascular Accident Renal/ Medical History: Denies: Hx Peritoneal Dialysis Musculoskeletal Medical History: Denies Hx Arthritis Past Surgical History: Reports: Hx Gynecologic Surgery - ovarian cyst - Immunizations Hx Diphtheria, Pertussis, Tetanus Vaccination: Yes Review of Systems - Review of Systems Constitutional: See HPI Neurological/Psychological: See HPI -: Yes All other systems reviewed and negative Physical Exam - Vital signs Vitals: Temp Pulse Resp BP Pulse Ox 97.8 F 65 14 99/66 L 100 05/31/19 10:30 05/31/19 10:30 05/31/19 10:30 05/31/19 10:30 05/31/19 10:30 - Notes Notes: Is a 59-year-old female who appears her stated age. She is drowsy, but in no apparent distress. She rouses easily to verbal stimuli. GCS is 15. She is calm and cooperative with examiner, with extremely flat affect. Vital signs reviewed, please refer to chart. Head is normocephalic, atraumatic. Pupils equal round, reactive to light. Neck is supple without meningismus. Heart is regular rate and rhythm. Lungs are clear to auscultation bilaterally. Abdomen is soft, nontender, normoactive bowel sounds throughout. Extremities without cyanosis, clubbing. Posterior calves are nontender. Peripheral pulses are equal. Skin is warm and dry. Patient is awake, alert, neurological exam is nonfocal. Course - Re-evaluation Re-evalutation: 05/31/19 19:08 Patient presents emergency department for evaluation. She had an intentional overdose of Xanax and an us attempt to commit suicide. The patient has been vitally stable. Poison control was contacted and stated that she be medically cleared after 6 hours. They did recommend repeat salicylate and acetaminophen levels, as well as EKG. These all came back unremarkably. 24-hour hold paperwork is placed by psychosocial team. At this point, patient is medically cleared. She is here for 24-hour hold. Further disposition as per psychosocial team. - Vital Signs Vital signs: Temp Pulse Resp BP Pulse Ox 97.8 F 65 18 106/79 97 05/31/19 10:30 05/31/19 10:30 05/31/19 18:00 05/31/19 18:00 05/31/19 18:00 - Laboratory Result Diagrams: 05/31/19 12:02 05/31/19 16:30 Laboratory results interpreted by me: 05/31/19 05/31/19 12:02 16:30 Anion Gap 3 L Creatinine 0.44 L 0.51 L Salicylates < 1.0 L < 1.0 L Acetaminophen < 10 L < 10 L - EKG Interpretation by Me Additional EKG results interpreted by me: 05/31/19 19:09 Initial EKG revealed a sinus mechanism with a rate of 55 bpm. Normal axis and intervals. No acute ST changes concerning for ischemia or infarction. Repeat EKG shows sinus mechanism with a rate of 78. No other changes. Discharge - Discharge Clinical Impression: Suicide attempt Intentional benzodiazepine overdose Qualifiers: Encounter type: initial encounter Qualified Code(s): T42.4X2A - Poisoning by benzodiazepines, intentional self-harm, initial encounter Condition: Stable Disposition: OTHER Referrals: SHANA GARCIA PA-C [Primary Care Provider] - Follow up as needed
--- NOTE | 2019-05-31 19:15 | RADIOLOGY REPORT (SQ) ---
EXAM DESCRIPTION: CHEST SINGLE VIEW COMPLETED DATE/TIME: 05/31/2019 7:01 pm REASON FOR STUDY: overdose COMPARISON: None. EXAM PARAMETERS: NUMBER OF VIEWS: One view. TECHNIQUE: Single frontal radiographic view of the chest acquired. RADIATION DOSE: NA LIMITATIONS: None. FINDINGS: LUNGS AND PLEURA: The lungs are hyperexpanded. There is no infiltrate, effusion, or mass. MEDIASTINUM AND HILAR STRUCTURES: No masses. Contour normal. HEART AND VASCULAR STRUCTURES: Heart normal in size. Normal vasculature. BONES: No acute findings. HARDWARE: None in the chest. OTHER: No other significant finding. IMPRESSION: NO ACUTE RADIOGRAPHIC FINDING IN THE CHEST. TECHNICAL DOCUMENTATION: JOB ID: [id number] 2010 [employer]- All Rights Reserved Reading location - IP/workstation name: [email or web address]
--- NOTE | 2019-05-31 21:37 | EKG REPORT ---
SEVERITY:- NORMAL ECG - SINUS RHYTHM : Confirmed by: Lucrecia Mejias MD 31-May-2019 21:35:56
[2019-06-01 12:54] VITALS: BP 124/78
--- NOTE | 2019-06-01 12:54 | ER Document Report ---
Doctor's Note Notes: 06/01/19 12:42 PHYSICAL EXAMINATION: GENERAL: Appears well, healthy, well-nourished, no acute distress. LUNGS: Equal breath sounds bilaterally and clear to auscultation. No wheezes rales or rhonchi. CARDIOVASCULAR: S1-S2, regular rate, regular rhythm. Radial pulses 2+, normal. ABDOMEN: Normoactive bowel sounds. Soft, nontender, no guarding, no rebound tenderness, and no masses palpated. PSYCH: Labile mood, appears anxious. States that she is anxious. Patient denies any suicidal or homicidal ideation at this time, but states that she feels anxious due to her going to [facility]. I have evaluated the patient and at this time, the patient is stable for transport to [facility].
--- NOTE | 2019-06-01 17:41 | PSYCHOLOGICAL NOTE ---
Psych Note - Psych Note Date seen by psych provider: 06/01/19 Time seen by psych provider: 08:05 Psych Note: Reason For Consult: reported intentional overdose Consent Permissions:did not provide Patient was under the impression she was going to be discharged this morning. Patient was informed that no discharge plan was in place. Patient states there is not need for her to remain in the hospital. Clinician referred to the suicide attempt and continued endorsement of SI to her and behavioral health team on yesterday. When asked what has changed, patient could not identify anything. Patient states she was frustrated at her 's lack of motivation to [place]. Patient states she is prescribed Xanax by her PCP, Merlyn Ramirez. Patient denies SI/HI. Patient described her suicidal state as "situational," and clinician replied that, according to her, nothing in her situation has changed. Patient is alert and oriented to person, place, time and circumstance. Mood is normal with congruent affect. Patient denies suicidal and homicidal ideations. Delusions are absent and behavior is congruent with an intact reality based presentation (i.e., organized and linear through processes). There is no observed behavior that suggests patient is responding to internal stimuli. Patient is able to engage in organized, rational thought processes. Patient is able to express needs and wants in a logical manner. Patient denies current auditory and visual hallucinations. Eye contact is appropriate. Conversational speech is within normal rate, tone, and prosody. Intellectual ability appears to be within average range. Attention and concentration are good. Insight, judgment and impulse control are currently poor. Impression/Plan: Patient accepted by [facility] for treatment.
== END 2019-06-01 12:54 | disposition other institution (70) ==
LOC: ER 10:28
DX: T42.4X2A Poisoning by benzodiazepines, intentional self-harm, initial encounter (principal); X58.XXXA Exposure to other specified factors, initial encounter; Z88.6 Allergy status to analgesic agent; F17.200 Nicotine dependence, unspecified, uncomplicated
CPT/HCPCS: 36415; 71045; 80053; 80307; 81001; 85025; 93005; 93010; 99285